=== PATIENT | male | born 1995 | race Asian ===

== ENCOUNTER 2019-05-21 07:53 | Emergency (ER) | payer OTHER ==
[~2019-05-21] VITALS: Ht 162.6 cm; Wt 62.7 kg
[2019-05-21 09:13] LABS: BASO % 0.2 % (0.0-1.0); EOS % 0.1 % (0.0-3.0); HEMATOCRIT 39.4 % (42.0-52.0); HEMOGLOBIN 13.4 g/dl (13.5-17.5); LYMPH # 0.9 10^3/uL (1.5-6.5); LYMPH % 6.7 % (24.0-44.0); MEAN CORPUSCULAR HEMOGLOBIN 33.3 pg (27.0-33.0); MONO # 0.6 10^3/uL (0.0-0.8); MONO % 4.8 % (0.0-5.0); NEUTROPHILS # 11.1 10^3/uL (1.8-7.7); NEUTROPHILS % 87.6 % (36.0-66.0); PLATELET COUNT, AUTOMATED 222 10^3/uL (150-450); RED BLOOD COUNT 4.02 10^6/uL (4.30-6.10); WHITE BLOOD COUNT 12.7 10^3/uL (4.0-10.0)
[2019-05-21 09:39] LABS: BLOOD UREA NITROGEN 15 MG/DL (7-18); CALCIUM LEVEL 8.1 MG/DL (8.5-10.1); CARBON DIOXIDE LEVEL 27 MEQ/L (21-32); CHLORIDE LEVEL 111 MEQ/L (98-107); CREATININE FOR GFR 1.13 MG/DL (0.70-1.30); GLOMERULAR FILTRATION RATE > 60.0 (>60); GLUCOSE, FASTING 87 MG/DL (70-100); POTASSIUM SERUM 4.3 MEQ/L (3.5-5.1); SODIUM LEVEL 142 MEQ/L (136-145)
[2019-05-21 10:15] VITALS: BP 123/58
--- NOTE | 2019-05-22 00:14 | ECGEPIP ---
[facility] - ED Test Date: 2019-05-21 Pat Name: RAE SAMPSON Department: Room: - Gender: Male [employer] Department Chair: ANDREW : 1995 Requested By: Claude Clark Order Number: [id number] Reading MD: Jim Vaughan Measurements Intervals [place] Rate: 70 P: 31 AL: 164 QRS: 68 QRSD: 94 T: 21 QT: 369 QTc: 400 Interpretive Statements SINUS RHYTHM Comparison tracing not on file Electronically Signed on 05-22-2019 0:14:12 EDT by Jim Vaughan
== END 2019-05-21 10:40 | disposition home or self-care (01) ==
LOC: M ED 07:53 → EDBD 07:53 → M ED 10:40
DX: R55 Syncope and collapse (principal); I45.10 Unspecified right bundle-branch block; Z91.013 Allergy to seafood